=== PATIENT | female | born 1985 | race Caucasian/White ===

== ENCOUNTER 2017-06-11 17:56 | Emergency (ER) | payer MEDICAID ==
[~2017-06-11] VITALS: Ht 165.1 cm; Wt 73.8 kg
[2017-06-11 18:13] VITALS: Ht 165.1 cm; Wt 73.8 kg
[2017-06-11 19:44] LABS: BASOPHILS % 0.3 % (0.0-2.0); EOSINOPHILS # 0.2 10^3/ul (0.0-0.5); EOSINOPHILS % 1.7 % (0.0-7.0); HEMATOCRIT 40.7 % (37.0-47.0); HEMOGLOBIN 13.7 g/dl (12.0-16.0); LYMPHOCYTES # 3.3 10^3/ul (0.8-2.9); LYMPHOCYTES % 30.9 % (15.0-51.0); MEAN CORPUSCULAR HEMOGLOBIN 28.4 pg (29.0-33.0); MEAN CORPUSCULAR HGB CONC 33.7 g/dl (32.0-37.0); MEAN CORPUSCULAR VOLUME 84.3 fl (82.0-101.0); MONOCYTE # 0.8 10^3/ul (0.3-0.9); MONOCYTES % 7.4 % (0.0-11.0); NEUTROPHIL # 6.4 10^3/ul (1.6-7.5); NEUTROPHILS % 59.4 % (39.0-77.0); PLATELET COUNT 252 10^3/UL (140-415); RED BLOOD COUNT 4.83 10^6/ul (4.20-5.40); RED CELL DISTRIBUTION WIDTH 13.1 % (11.5-14.5); WHITE BLOOD COUNT 10.8 10^3/ul (4.8-10.8)
[2017-06-11 19:52] LABS: ADD UMIC YES; UR ASCORBIC ACID NEGATIVE (NEGATIVE); UR BILIRUBIN (Dip) NEGATIVE (NEGATIVE); UR BLOOD (Dip) 3+ mg/dL (NEGATIVE); UR CLARITY CLEAR (CLEAR); UR COLOR STRAW (YELLOW); UR GLUCOSE (Dip) 3+ mg/dL (NEGATIVE); UR KETONES (Dip) NEGATIVE (NEGATIVE); UR LEUKOCYTE ESTERASE (Dip) NEGATIVE Leu/ul (NEGATIVE); UR NITRITE (Dip) NEGATIVE (NEGATIVE); UR RBC 14 /HPF (0-5); UR SPECIFIC GRAVITY (Dip) 1.028 (1.003-1.030); UR TOTAL PROTEIN (Dip) NEGATIVE (NEGATIVE); UR UROBILINOGEN (Dip) NEGATIVE (NEGATIVE)
--- NOTE | 2017-06-11 20:23 | RADRPT ---
PROCEDURE: Ultrasound OB. CLINICAL INDICATION: Vaginal bleeding. TECHNIQUE: Multiple sonographic images of the pelvis were obtained utilizing a transabdominal and transvaginal technique. COMPARISON: None available FINDINGS: Uterus: 10.5 cm x 5.5 cm x 6.2 cm. Normal in size and echogenicity with no mass lesion identified. Endometrium: 11 mm in thickness. No intrauterine is identified. Right ovary: 2.96 cm x 1.57 cm x 2.32 cm. Normal in size and echogenicity. Normal blood flow. Simpl e 1. 6 cm cyst, likely a benign follicle. Left ovary: 3.03 cm x 1.82 cm x 2.14 cm. Normal in size and echogenicity. Normal blood flow. Adnexa: No masses. Free fluid: None. IMPRESSION: 1. No intrauterine is identified, which can be a normal finding in early . How ever, ectopic is not excluded and serial beta HCG with short interval follow-up ultrasound is recommended for further evaluation. RPTAT: HLBP .David West MD, MD Date Time Electronically viewed and signed by .David West MD, MD on 06/11/2017 20:22 .P/
--- NOTE | 2017-06-11 21:03 | ERD ---
ER Documentation Chief Complaint Chief Complaint VAGINAL BLEEDING WITH CLOTS - LMP 04/03/17 HPI This is a 31-year-old female presents to the ER complaining of vaginal bleeding that started this morning. Patient denies any pelvic pain. Patient is currently 10 weeks . A3. Patient used a total of 3 pads today. Her last normal menstrual period was April 03, 2017 ROS 12 point review of systems was done, all negative except per HPI. PMhx/Soc Medical and Surgical Hx: pt denies Medical Hx, pt denies Surgical Hx Hx Alcohol Use: No Hx Substance Use: No Hx Tobacco Use: No Smoking Status: Never smoker Physical Exam Vitals Vital Signs Date Time Temp Pulse Resp B/P Pulse Ox O2 Delivery O2 Flow Rate FiO2 06/11/17 18:13 97.9 84 19 149/91 99 Physical Exam GENERAL: The patient is well developed and appropriate for usual state of health , in no apparent distress. HEENT: Atraumatic. CHEST: Clear to auscultation bilaterally. There are no rales, wheezes or rhonchi. HEART: Regular rate and rhythm. No murmurs, clicks, rubs or gallops. ABDOMEN: Soft, nontender and nondistended. Good bowel sounds. No rebound or guarding. No gross peritonitis. No gross organomegaly or masses. No Cohen sign or McBurney point tenderness. BACK: No midline or flank tenderness. NEURO: Alert and oriented. SKIN: The skin is warm and dry. Result Diagram: 06/11/171919 Results 24 hrs Laboratory Tests Test 06/11/17 19:20 White Blood Count 10.810^3/ul Red Blood Count 4.8310^6/ul Hemoglobin 13.7g/dl Hematocrit 40.7% Mean Corpuscular Volume 84.3fl Mean Corpuscular Hemoglobin 28.4pg Mean Corpuscular Hemoglobin Concent 33.7g/dl Red Cell Distribution Width 13.1% Platelet Count 03334^3/UL Mean Platelet Volume 11.0fl Neutrophils % 59.4% Lymphocytes % 30.9% Monocytes % 7.4% Eosinophils % 1.7% Basophils % 0.3% Nucleated Red Blood Cells % 0.0/100WBC Neutrophils # 6.410^3/ul Lymphocytes # 3.310^3/ul Monocytes # 0.810^3/ul Eosinophils # 0.210^3/ul Basophils # 0.010^3/ul Nucleated Red Blood Cells # 0.010^3/ul Urine Color STRAW Urine Clarity CLEAR Urine pH 6.0 Urine Specific [place] 1.028 Urine Ketones NEGATIVEmg/dL Urine Nitrite NEGATIVEmg/dL Urine Bilirubin NEGATIVEmg/dL Urine Urobilinogen NEGATIVEmg/dL Urine Leukocyte Esterase NEGATIVELeu/ul Urine Microscopic RBC 14/HPF Urine Microscopic WBC 1/HPF Urine Hemoglobin 3+mg/dL Urine Glucose 3+mg/dL Urine Total Protein NEGATIVEmg/dl Beta HCG, Quantitative 152.3mIU/ml Procedures/MDM Differential diagnosis: Threatened , missed , incomplete , ectopic , molar , UTI, pyelonephritis. This is a 31 -year-old female presents for ER with vaginal bleeding, patient states she is about 10 weeks however there is no evidence of intrauterine at this time. Her quantitative hCG is 500, patient likely miscarried. Suspicion for ectopic is low. Patient needs to follow-up with her OB/ [facility] within 48 hours return to ER if symptoms worsen. My medical decision making sure with the patient she understands and agrees with plan per Departure Diagnosis: Primary Impression: Vaginal bleeding in patient at less than 20 weeks ges... Condition: Stable Patient Instructions: Possible Miscarriage (Threatened ) Additional Instructions: Call your primary care doctor TOMORROW for an appointment during the next 1-2 days.See the doctor sooner or return here if your condition worsens before your appointment time. FATMATA MOTTA Jun 11, 2017 21:03
[2017-06-11 21:09] VITALS: BP 119/87; PULSE 81; RESP 20; TEMP 99.1
== END 2017-06-11 21:08 | disposition home or self-care (01) ==
LOC: FTE 17:56
DX: O20.9 Hemorrhage in early pregnancy, unspecified (principal); R10.2 Pelvic and perineal pain; Z3A.10 10 weeks gestation of pregnancy
CPT/HCPCS: 36415; 76801; 76817; 81001; 84702; 85025; 86900; 86901; Z7502

== ENCOUNTER 2018-08-27 20:35 | Emergency (ER) | payer SELFPAY ==
[~2018-08-27] VITALS: Ht 162.6 cm; Wt 76.2 kg
[2018-08-27 20:47] VITALS: BP 148/82; PULSE 78; RESP 18; Ht 162.6 cm; Wt 76.2 kg
== END 2018-08-28 04:20 | disposition left against medical advice (07) ==
LOC: FTE 20:35
DX: Z53.21 Procedure and treatment not carried out due to patient leaving prior to being seen by health care provider (principal)